=== PATIENT | female | born 2000 ===

== ENCOUNTER 2019-01-06 12:39 | Emergency (ER) | payer BC ==
[2019-01-06 13:10] VITALS: BP 105/62
--- NOTE | 2019-01-06 14:26 | ED ---
GI/ HPI - HPI Summary HPI Summary: 18-year-old female presents with urgency and frequency for the pat 2 weeks. She states that she has increased her water intake. She denies any dysuria. No fevers. No nausea vomiting. denies any flank pain. this has never happened before. No history of uti. She states she could be . denies any chance of stds or abnormal vaginal discharge or pelvic pain. - History of Current Complaint Chief Complaint: [facility] Time Seen by Provider: 01/06/19 14:14 Stated Complaint: URINARY COMPLAINT Hx Last Menstrual Period: 12/06/18 Pain Intensity: 4 - Allergy/Home Medications Allergies/Adverse Reactions: Allergies Allergy/AdvReac Type Severity Reaction Status Date / Time No Known Allergies Allergy Verified 01/06/19 13:10 Home Medications: Home Medications NK [No Home Medications Reported] 01/06/19 [History Confirmed 01/06/19] PMH/Surg Hx/FS Hx/Imm Hx Endocrine/Hematology History: Denies: Hx Anticoagulant Therapy Respiratory History: Denies: Hx Asthma - Surgical History Surgery Procedure, Year, and Place: septic hip Infectious Disease History: No Infectious Disease History: Denies: Traveled Outside the [place] in Last 30 Days - Family History Known Family History: Positive: Non-Contributory - Social History Alcohol Use: None Substance Use Type: Reports: None Smoking Status (MU): Never Smoked Tobacco Review of Systems Negative: Fever Negative: Chest Pain Negative: Shortness Of Breath Negative: Abdominal Pain Positive: frequency, urgency. Negative: dysuria All Other Systems Reviewed And Are Negative: Yes Physical Exam Triage Information Reviewed: Yes Vital Signs On Initial Exam: Initial Vitals Temp Pulse Resp BP Pulse Ox 99 F 78 20 105/62 100 01/06/19 13:07 01/06/19 13:07 01/06/19 13:07 01/06/19 13:07 01/06/19 13:07 Vital Signs Reviewed: Yes Appearance: Positive: Well-Appearing Skin: Positive: Warm, Dry Head/Face: Positive: Normal Head/Face Inspection Eyes: Positive: Normal, Conjunctiva Clear ENT: Positive: Pharynx normal Respiratory/Lung Sounds: Positive: Clear to Auscultation, Breath Sounds Present Cardiovascular: Positive: Normal, RRR Abdomen Description: Positive: Nontender, Soft. Negative: CVA Tenderness (R), CVA Tenderness (L) Bowel Sounds: Positive: Present Musculoskeletal: Positive: Normal Neurological: Positive: Normal Psychiatric: Positive: Normal Diagnostics - Vital Signs Vital Signs Temp Pulse Resp BP Pulse Ox 01/06/19 13:07 99 F 78 20 105/62 100 - Laboratory Lab Results: Lab Results 01/06/19 01/06/19 Range/Units 14:14 14:16 POC Urine Color Yellow POC Urine Clarity Clear POC Urine pH 7.0 (5-9) POC Ur Specif Colbert 1.010 (1.010-1.030) POC Urine Protein Negative (Negative) POC Ur Glucose (UA) Negative (Negative) POC Urine Ketones Negative (Negative) POC Urine Blood Negative (Negative) POC Urine Nitrite Negative (Negative) POC Urine Bilirubin Negative (Negative) POC Urine Urobilinogen 0.2 (Negative) POC U Leukocyte Esteras Negative (Negative) POC Ur Test Negative (Negative) Lab Statement: Any lab studies that have been ordered have been reviewed, and results considered in the medical decision making process. GIGU Course/Dx - Course Course Of Treatment: 18-year-old female presents with urgency and frequency for the pat 2 weeks. She states that she has increased her water intake. She denies any dysuria. No fevers. No nausea vomiting. denies any flank pain. this has never happened before. No history of uti. She states she could be . On exam has nontender flanks and abdomen. Urine is normal. Patient is not . Discussed do kegel exercises and bladder training. Patient understands agrees with plan. - Diagnoses Differential Diagnoses - Female: STD, Urinary Tract Infection, Ureteral Calculi Provider Diagnoses: Urinary frequency Discharge - Sign-Out/Discharge Documenting (check all that apply): Patient Departure All imaging exams completed and their final reports reviewed: No Studies - Discharge Plan Condition: Good Disposition: HOME Patient Education Materials: Urinary Urgency and Frequency (DC) Referrals: [place] GABRIELA Kaur [, APPLICATION, OTHER] - Additional Instructions: do kegel exercises Follow up with [facility] Return to if develop any new or worsening symptoms - Billing Disposition and Condition Condition: GOOD Disposition: Home
== END 2019-01-06 14:40 | disposition home or self-care (01) ==
LOC: UCEAST 12:39
DX: R35.0 Frequency of micturition (principal); R39.15 Urgency of urination
CPT/HCPCS: 81003; 84702; 99202; G0463